=== PATIENT | male | born 1955 | race Caucasian/White ===

== ENCOUNTER 2019-02-23 09:09 | Emergency (ER) | payer MEDICARE, OTHER ==
[2019-02-23] MEDS ORDERED: Bupivacaine 0.5% 10 ML SDV INJECT ONE (09:26)
--- NOTE | 2019-02-23 10:12 | EDM.PDOC ---
ED HPI GENERAL MEDICAL PROBLEM - General Chief Complaint: Upper Extremity Injury/Pain Stated Complaint: GLASS IN FINGER Time Seen by Provider: 02/23/19 09:27 Source of Information: Reports: Patient History Limitations: Reports: No Limitations - History of Present Illness INITIAL COMMENTS - FREE TEXT/NARRATIVE: History of present illness: [] Review of systems: As per history of present illness and below otherwise all systems reviewed and negative. Past medical history: As per history of present illness and as reviewed below otherwise noncontributory. Surgical history: As per history of present illness and as reviewed below otherwise noncontributory. Social history: No reported history of drug or alcohol abuse. Family history: As per history of present illness and as reviewed below otherwise noncontributory. Physical exam: General: Well developed, well nourished in NAD HEENT: Atraumatic, normocephalic, pupils reactive, negative for conjunctival pallor or scleral icterus, mucous membranes moist, throat clear, neck supple, nontender, trachea midline. Lungs: Clear to auscultation, breath sounds equal bilaterally, chest nontender. Heart: S1S2, regular, negative for clicks, rubs, or JVD. Abdomen: NABS, Soft, nondistended, nontender. Negative for masses or hepatosplenomegaly. Negative for costovertebral tenderness. Pelvis: Stable nontender. Genitourinary: Deferred. Rectal: Deferred. Extremities: Atraumatic, no external lesions in the area of tenderness or in the finger. She does not tolerate exam There is no erythema or swelling negative for cords or calf pain. Neurovascular unremarkable. Neuro: Awake, alert, oriented. Cranial nerves II through XII unremarkable. Cerebellum unremarkable. Motor and sensory unremarkable throughout. Exam nonfocal. Skin:warm and dry Diagnostics: Chest x-ray finger shows no foreign body Therapeutics: Digital block used as patient can tolerate exam and ED Course: Stable Impression: Right middle finger pain Prescriptions: None Plan: Warm soaks, follow up with primary care as needed Definitive disposition and diagnosis as appropriate pending reevaluation and review of above. - Related Data Allergies Allergy/AdvReac Type Severity Reaction Status Date / Time No Known Allergies Allergy Verified 02/23/19 09:19 Home Meds: Home Meds . [No Known Home Meds] 02/23/19 [History] Past Medical History - Past Surgical History Male Surgical History: Reports: Other (See Below) Other Male Surgeries/Procedures: testicular surgery Social & Family History - Family History Family Medical History: Noncontributory - Tobacco Use Smoking Status *Q: Never Smoker - Recreational Drug Use Recreational Drug Use: No Review of Systems - Review of Systems Review Of Systems: ROS reveals no pertinent complaints other than HPI. ED EXAM, GENERAL - Physical Exam Exam: See Below (See history of present illness) Course - Vital Signs Last Recorded V/S: Last Vital Signs Temp 96.4 F 02/23/19 09:15 Pulse 79 02/23/19 09:15 Resp 18 02/23/19 09:15 BP 158/72 H 02/23/19 09:15 Pulse Ox 93 L 02/23/19 09:15 - Orders/Labs/Meds Orders: Active Orders 24 hr Category Date Time Status Fingers Third Digit Rt F7 [CR] Stat Exams 02/23/19 09:48 Taken Meds: Medications Discontinued Medications Generic Name Dose Route Start Last Admin Trade Name Freq PRN Reason Stop Dose Admin Bupivacaine HCl 10 ml 02/23/19 09:26 02/23/19 09:54 Sensorcaine-Mpf 0.5% INJECT 02/23/19 09:27 10 ml ONETIME ONE Administration Lidocaine HCl 5 ml 02/23/19 09:26 02/23/19 09:54 Xylocaine-Mpf 1% INJECT 02/23/19 09:27 5 ml ONETIME ONE Administration Departure - Departure Time of Disposition: 10:14 Disposition: Home, Self-Care 01 Condition: Good Clinical Impression: Pain of left middle finger - Discharge Information *PRESCRIPTION DRUG MONITORING PROGRAM REVIEWED*: No *COPY OF PRESCRIPTION DRUG MONITORING REPORT IN PATIENT SATURNINO: No Referrals: PCP,Unknown [Primary Care Provider] - Forms: ED Department Discharge Additional Instructions: The following information is given to patients seen in the emergency department who are being discharged to home. This information is to outline your options for follow-up care. We provide all patients seen in our emergency department with a follow-up referral. The need for follow-up, as well as the timing and circumstances, are variable depending upon the specifics of your emergency department visit. If you don't have a primary care physician on staff, we will provide you with a referral. We always advise you to contact your personal physician following an emergency department visit to inform them of the circumstance of the visit and for follow-up with them and/or the need for any referrals to a consulting specialist. The emergency department will also refer you to a specialist when appropriate. This referral assures that you have the opportunity for follow-up care with a specialist. All of these measure are taken in an effort to provide you with optimal care, which includes your follow-up. Under all circumstances we always encourage you to contact your private physician who remains a resource for coordinating your care. When calling for follow-up care, please make the office aware that this follow-up is from your recent emergency room visit. If for any reason you are refused follow-up, please contact the [facility] Emergency Department at and asked to speak to the emergency department charge nurse. [facility] [address] [place] [id number] - My Orders Last 24 Hours: My Active Orders 02/23/19 09:48 Fingers Third Digit Rt F7 [CR] Stat - Assessment/Plan Last 24 Hours: My Active Orders 02/23/19 09:48 Fingers Third Digit Rt F7 [CR] Stat
--- NOTE | 2019-02-23 15:45 | CR ---
INDICATION: Possible foreign body at distal volar tip TECHNIQUE: Frontal, lateral, and oblique portable radiographs of the right 3rd digit. COMPARISON: None FINDINGS AND IMPRESSION: No radiopaque foreign body at the distal aspect of the 3rd digit as clinically questioned. Punctate calcification at the volar and radial aspect of the base of the 3rd mid phalanx is likely degenerative. Normal alignment. No acute fracture. No significant soft tissue swelling. Dictated by Mae Rojas MD @ Feb 23 2019 10:21AM Signed by Dr. Mae Rojas @ Feb 23 2019 10:24AM
== END 2019-02-23 10:26 | disposition home or self-care (01) ==
LOC: MW.ED 09:09
DX: M79.644 Pain in right finger(s) (principal)
CPT/HCPCS: 64450; 73140; 99283; J2001; J3490

== ENCOUNTER 2019-05-25 15:45 | Emergency (ER) | payer OTHER, MEDICARE ==
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
== END 2019-05-25 17:02 | disposition home or self-care (01) ==
LOC: MW.ED 15:45
DX: S16.1XXA Strain of muscle, fascia and tendon at neck level, initial encounter (principal); V89.2XXA Person injured in unspecified motor-vehicle accident, traffic, initial encounter
CPT/HCPCS: 72125; 72125-26; 99283; 99284-25

== ENCOUNTER 2019-06-19 11:39 | Emergency (ER) | payer OTHER, MEDICARE ==
[2019-06-19] MEDS ORDERED: traMADol 50 MG Tab PO ONE (12:01)
[2019-06-19] MEDS ORDERED: Cyclobenzaprine 10 MG Tab PO ONE (12:01)
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
--- NOTE | 2019-06-19 13:11 | CR ---
Lumbar spine: AP, lateral and coned-down lateral view centered to the lumbosacral junction are obtained. Diffuse posterior disc space narrowing is seen. Moderate diffuse narrowing is noted within the disc at L5-S1. Very slight anterior wedging is noted of the superior endplate of L1. Vertebral body heights are otherwise maintained. Scattered endplate osteophytes are seen. Mild vascular calcification is noted within the aorta. Mild scoliosis is noted within the spine. Pedicles as well as visualized transverse and spinous processes are intact. Sacroiliac joints are within normal limits. Impression: 1. Mild degenerative change. Mild scoliosis. 2. Minimal anterior wedging of the superior endplate of L1. If patient has no acute symptoms this is most likely chronic. Diagnostic code #2 [id number]
== END 2019-06-19 13:31 | disposition home or self-care (01) ==
LOC: MW.ED 11:39
DX: M54.5 Low back pain (principal)
CPT/HCPCS: 72100; 72100-26; 99283-25

== ENCOUNTER 2021-08-27 12:12 | Inpatient (IN) | payer MEDICARE ==
[2021-08-27] MEDS ORDERED: Sodium Chloride 0.9% 2.5 ML Syringe FLUSH PRN (12:31)
[2021-08-27] MEDS ORDERED: Sodium Chloride 0.9% 10 ML Syringe FLUSH PRN (12:31)
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
--- NOTE | 2021-08-27 13:21 | CR ---
INDICATION: COVID positive, shortness of breath. TECHNIQUE: Chest 1 view. COMPARISON: Chest radiograph 03/03/2017. FINDINGS: There is a dense patchy opacity in the lateral right lung base, and milder patchy opacities in the left mid and lower lung. Findings are suspicious for pneumonia. No pleural effusion or pneumothorax. Heart size upper limits of normal. Tortuous aorta. Degenerative changes of the left acromioclavicular joint. IMPRESSION: Bilateral patchy pulmonary opacities suspicious for pneumonia. Dictated by Misty Montes MD @ 08/27/2021 1:19:17 PM (Electronically Signed)
--- NOTE | 2021-08-27 13:26 | PCM.EKG ---
#1 Interpretation EKG Date: 08/27/21 Time: 13:26 EKG Interpretation Comments: Sinus arrhythmia rate of 93 Q waves inferiorly but no acute ischemia otherwise unremarkable.
[2021-08-27 15:01] LABS: BLOOD UREA NITROGEN,BUN 23 mg/dL (7.0-18.0); CARBON DIOXIDE,CO2 27.8 mmol/L (21.0-32.0); CHLORIDE,CL 98 mmol/L (98-107); GLUCOSE RANDOM 175 mg/dL (74-106); POTASSIUM,K 4.5 mmol/L (3.5-5.1); SODIUM,NA 135 mmol/L (136-148)
[2021-08-27 17:41] LABS: CORONAVIRUS COVID-19 NAA POSITIVE (NEGATIVE); INFLUENZA A NAA NEGATIVE (NEGATIVE); INFLUENZA B NAA NEGATIVE (NEGATIVE)
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
[2021-08-27] MEDS ORDERED: Benzonatate 100 MG Cap PO PRN (17:57)
[2021-08-27] MEDS ORDERED: Azithromycin 500 MG Vial IV SCH (18:00)
[2021-08-27] MEDS ORDERED: Sodium Chloride 0.9% 500 ML IV SCH (18:00)
[2021-08-27] MEDS ORDERED: Enoxaparin 40 MG/0.4 ML Syringe SUBCUT SCH (18:00)
[2021-08-27] MEDS ORDERED: cefTRIAXone 1 GM in Premix Bag 1 BAG IV SCH (18:00)
[2021-08-27] MEDS: Enoxaparin 40 MG/0.4 ML Syringe SUBCUT SCH (22:09)
[2021-08-27] MEDS: Azithromycin 500 MG in Sodium Chloride 0.9% 250 ML IV SCH (22:09)
[2021-08-27] MEDS: cefTRIAXone 1 GM in Premix Bag 1 BAG IV SCH (23:15)
[2021-08-28 08:35] LABS: BLOOD UREA NITROGEN,BUN 16 mg/dL (7.0-18.0); CARBON DIOXIDE,CO2 27.1 mmol/L (21.0-32.0); CHLORIDE,CL 102 mmol/L (98-107); GLUCOSE RANDOM 115 mg/dL (74-106); POTASSIUM,K 4.4 mmol/L (3.5-5.1); SODIUM,NA 136 mmol/L (136-148)
--- NOTE | 2021-08-28 13:18 | PCM.PN ---
- General Info Date of Service: 08/28/21 - Review of Systems Systems Review Comment:: reports fatigue and shortness of breath - Patient Data Vitals - Most Recent: Last Vital Signs Temp 35.9 C L 08/28/21 07:37 Pulse 90 08/28/21 07:37 Resp 18 08/28/21 07:37 BP 130/79 08/28/21 07:37 Pulse Ox 96 08/28/21 07:37 Weight - Most Recent: 106.322 kg I&O - Last 24 Hours: Intake & Output 08/27/21 08/28/21 08/28/21 22:59 06:59 14:59 Intake Total 1000 Output Total 300 Balance 700 Lab Results Last 24 Hours: Laboratory Results - last 24 hr 08/27/21 08/27/21 08/27/21 Range/Units 14:03 14:03 17:00 WBC 8.52 (4.0-11.0) K/uL RBC 4.65 (4.50-5.90) M/uL Hgb 15.9 (13.0-17.0) g/dL Hct 45.2 (38.0-50.0) % MCV 97.2 (80.0-98.0) fL MCH 34.2 H (27.0-32.0) pg MCHC 35.2 (31.0-37.0) g/dL RDW Std Deviation 48.0 (28.0-62.0) fl RDW Coeff of Bennie 14 (11.0-15.0) % Plt Count 127 L (150-400) K/uL MPV 11.10 (7.40-12.00) fL Neut % (Auto) 81.2 H (48.0-80.0) % Lymph % (Auto) 7.4 L (16.0-40.0) % Toole % (Auto) 11.3 (0.0-15.0) % Eos % (Auto) 0.0 (0.0-7.0) % Baso % (Auto) 0.1 (0.0-1.5) % Neut # (Auto) 6.9 H (1.4-5.7) K/uL Lymph # (Auto) 0.6 (0.6-2.4) K/uL Toole # (Auto) 1.0 H (0.0-0.8) K/uL Eos # (Auto) 0.0 (0.0-0.7) K/uL Baso # (Auto) 0.0 (0.0-0.1) K/uL Nucleated RBC % 0.0 /100WBC Nucleated RBCs # 0 K/uL Sodium 135 L (136-148) mmol/L Potassium 4.5 (3.5-5.1) mmol/L Chloride 98 (98-107) mmol/L Carbon Dioxide 27.8 (21.0-32.0) mmol/L BUN 23 H (7.0-18.0) mg/dL Creatinine 1.0 (0.8-1.3) mg/dL Est Cr Clr Drug Dosing 77.60 mL/min Estimated GFR (MDRD) > 60.0 ml/min Glucose 175 H (74-106) mg/dL Calcium 8.7 (8.5-10.1) mg/dL Magnesium 2.2 (1.8-2.4) mg/dL Total Bilirubin 0.7 (0.2-1.0) mg/dL AST 52 H (15-37) IU/L ALT 71 H (14-63) IU/L Alkaline Phosphatase 46 (46-116) U/L Troponin I < 0.050 (0.000-0.056) ng/mL C-Reactive Protein (0.00-0.90) mg/dL Total Protein 6.6 (6.4-8.2) g/dL Albumin 2.7 L (3.4-5.0) g/dL Globulin 3.9 (2.6-4.0) g/dL Albumin/Globulin Ratio 0.7 L (0.9-1.6) Influenza Type A RNA NEGATIVE (NEGATIVE) Influenza Type B RNA NEGATIVE (NEGATIVE) SARS-CoV-2 RNA (PILAR) POSITIVE H (NEGATIVE) 08/27/21 08/28/21 08/28/21 Range/Units 18:06 06:56 06:56 WBC 5.73 (4.0-11.0) K/uL RBC 4.25 L (4.50-5.90) M/uL Hgb 14.3 (13.0-17.0) g/dL Hct 41.6 (38.0-50.0) % MCV 97.9 (80.0-98.0) fL MCH 33.6 H (27.0-32.0) pg MCHC 34.4 (31.0-37.0) g/dL RDW Std Deviation 48.4 (28.0-62.0) fl RDW Coeff of Bennie 13 (11.0-15.0) % Plt Count 133 L (150-400) K/uL MPV 11.70 (7.40-12.00) fL Neut % (Auto) 67.8 (48.0-80.0) % Lymph % (Auto) 18.0 (16.0-40.0) % Toole % (Auto) 13.8 (0.0-15.0) % Eos % (Auto) 0.2 (0.0-7.0) % Baso % (Auto) 0.2 (0.0-1.5) % Neut # (Auto) 3.9 (1.4-5.7) K/uL Lymph # (Auto) 1.0 (0.6-2.4) K/uL Toole # (Auto) 0.8 (0.0-0.8) K/uL Eos # (Auto) 0.0 (0.0-0.7) K/uL Baso # (Auto) 0.0 (0.0-0.1) K/uL Nucleated RBC % 0.0 /100WBC Nucleated RBCs # 0 K/uL Sodium 136 (136-148) mmol/L Potassium 4.4 (3.5-5.1) mmol/L Chloride 102 (98-107) mmol/L Carbon Dioxide 27.1 (21.0-32.0) mmol/L BUN 16 (7.0-18.0) mg/dL Creatinine 0.9 (0.8-1.3) mg/dL Est Cr Clr Drug Dosing 86.22 mL/min Estimated GFR (MDRD) > 60.0 ml/min Glucose 115 H (74-106) mg/dL Calcium 7.9 L (8.5-10.1) mg/dL Magnesium (1.8-2.4) mg/dL Total Bilirubin 0.6 (0.2-1.0) mg/dL AST 83 H (15-37) IU/L ALT 91 H (14-63) IU/L Alkaline Phosphatase 41 L (46-116) U/L Troponin I (0.000-0.056) ng/mL C-Reactive Protein 12.80 H (0.00-0.90) mg/dL Total Protein 5.6 L (6.4-8.2) g/dL Albumin 2.3 L (3.4-5.0) g/dL Globulin 3.3 (2.6-4.0) g/dL Albumin/Globulin Ratio 0.7 L (0.9-1.6) Influenza Type A RNA (NEGATIVE) Influenza Type B RNA (NEGATIVE) SARS-CoV-2 RNA (PILAR) (NEGATIVE) Med Orders - Current: Current Medications Benzonatate (Benzonatate 100 Mg Cap) 100 mg PO Q6H PRN PRN Reason: Cough Last Admin: 08/28/21 02:53 Dose: 100 mg Documented by: Enoxaparin Sodium (Enoxaparin 40 Mg/0.4 Ml Syringe) 40 mg SUBCUT Q24H [facility] Last Admin: 08/27/21 22:09 Dose: 40 mg Documented by: Sodium Chloride (Normal Saline) 500 mls @ 125 mls/hr IV .BOLUS [facility] Ceftriaxone Sodium/Dextrose 1 (gm/ Premix) 50 mls @ 100 mls/hr IV Q24H [facility] Last Admin: 08/27/21 23:15 Dose: 100 mls/hr Documented by: Azithromycin 500 mg/ Sodium (Chloride) 250 mls @ 250 mls/hr IV Q24H [facility] Last Admin: 08/27/21 22:09 Dose: 250 mls/hr Documented by: Sodium Chloride (Sodium Chloride 0.9% 10 Ml Syringe) 10 ml FLUSH ASDIRECTED PRN PRN Reason: Keep Vein Open Last Admin: 08/27/21 15:00 Dose: 10 ml Documented by: Sodium Chloride (Sodium Chloride 0.9% 2.5 Ml Syringe) 2.5 ml FLUSH ASDIRECTED PRN PRN Reason: Keep Vein Open Last Admin: 08/27/21 15:00 Dose: 2.5 ml Documented by: Discontinued Medications Azithromycin (Azithromycin 500 Mg Vial) 500 mg IV Q24H [facility] Last Admin: 08/28/21 07:52 Dose: Not Given Documented by: Enoxaparin Sodium (Enoxaparin 40 Mg/0.4 Ml Syringe) 40 mg SUBCUT Q24H [facility] Last Admin: 08/28/21 07:52 Dose: Not Given Documented by: Ceftriaxone Sodium/Dextrose 1 (gm/ Premix) 50 mls @ 100 mls/hr IV Q24H [facility] Last Admin: 08/28/21 07:52 Dose: Not Given Documented by: - Exam General: Alert, Oriented Neck: Supple Lungs: Clear to Auscultation, Normal Respiratory Effort Cardiovascular: Regular Rate, Regular Rhythm GI/Abdominal Exam: Soft, Non-Tender, No Distention Extremities: Non-Tender, No Pedal Edema Skin: Warm, Dry, Intact Neurological: No New Focal Deficit - Patient Data Lab Results Last 24 hrs: Laboratory Results - last 24 hr 08/27/21 08/27/21 08/27/21 Range/Units 14:03 14:03 17:00 WBC 8.52 (4.0-11.0) K/uL RBC 4.65 (4.50-5.90) M/uL Hgb 15.9 (13.0-17.0) g/dL Hct 45.2 (38.0-50.0) % MCV 97.2 (80.0-98.0) fL MCH 34.2 H (27.0-32.0) pg MCHC 35.2 (31.0-37.0) g/dL RDW Std Deviation 48.0 (28.0-62.0) fl RDW Coeff of Bennie 14 (11.0-15.0) % Plt Count 127 L (150-400) K/uL MPV 11.10 (7.40-12.00) fL Neut % (Auto) 81.2 H (48.0-80.0) % Lymph % (Auto) 7.4 L (16.0-40.0) % Toole % (Auto) 11.3 (0.0-15.0) % Eos % (Auto) 0.0 (0.0-7.0) % Baso % (Auto) 0.1 (0.0-1.5) % Neut # (Auto) 6.9 H (1.4-5.7) K/uL Lymph # (Auto) 0.6 (0.6-2.4) K/uL Toole # (Auto) 1.0 H (0.0-0.8) K/uL Eos # (Auto) 0.0 (0.0-0.7) K/uL Baso # (Auto) 0.0 (0.0-0.1) K/uL Nucleated RBC % 0.0 /100WBC Nucleated RBCs # 0 K/uL Sodium 135 L (136-148) mmol/L Potassium 4.5 (3.5-5.1) mmol/L Chloride 98 (98-107) mmol/L Carbon Dioxide 27.8 (21.0-32.0) mmol/L BUN 23 H (7.0-18.0) mg/dL Creatinine 1.0 (0.8-1.3) mg/dL Est Cr Clr Drug Dosing 77.60 mL/min Estimated GFR (MDRD) > 60.0 ml/min Glucose 175 H (74-106) mg/dL Calcium 8.7 (8.5-10.1) mg/dL Magnesium 2.2 (1.8-2.4) mg/dL Total Bilirubin 0.7 (0.2-1.0) mg/dL AST 52 H (15-37) IU/L ALT 71 H (14-63) IU/L Alkaline Phosphatase 46 (46-116) U/L Troponin I < 0.050 (0.000-0.056) ng/mL C-Reactive Protein (0.00-0.90) mg/dL Total Protein 6.6 (6.4-8.2) g/dL Albumin 2.7 L (3.4-5.0) g/dL Globulin 3.9 (2.6-4.0) g/dL Albumin/Globulin Ratio 0.7 L (0.9-1.6) Influenza Type A RNA NEGATIVE (NEGATIVE) Influenza Type B RNA NEGATIVE (NEGATIVE) SARS-CoV-2 RNA (PILAR) POSITIVE H (NEGATIVE) 08/27/21 08/28/21 08/28/21 Range/Units 18:06 06:56 06:56 WBC 5.73 (4.0-11.0) K/uL RBC 4.25 L (4.50-5.90) M/uL Hgb 14.3 (13.0-17.0) g/dL Hct 41.6 (38.0-50.0) % MCV 97.9 (80.0-98.0) fL MCH 33.6 H (27.0-32.0) pg MCHC 34.4 (31.0-37.0) g/dL RDW Std Deviation 48.4 (28.0-62.0) fl RDW Coeff of Bennie 13 (11.0-15.0) % Plt Count 133 L (150-400) K/uL MPV 11.70 (7.40-12.00) fL Neut % (Auto) 67.8 (48.0-80.0) % Lymph % (Auto) 18.0 (16.0-40.0) % Toole % (Auto) 13.8 (0.0-15.0) % Eos % (Auto) 0.2 (0.0-7.0) % Baso % (Auto) 0.2 (0.0-1.5) % Neut # (Auto) 3.9 (1.4-5.7) K/uL Lymph # (Auto) 1.0 (0.6-2.4) K/uL Toole # (Auto) 0.8 (0.0-0.8) K/uL Eos # (Auto) 0.0 (0.0-0.7) K/uL Baso # (Auto) 0.0 (0.0-0.1) K/uL Nucleated RBC % 0.0 /100WBC Nucleated RBCs # 0 K/uL Sodium 136 (136-148) mmol/L Potassium 4.4 (3.5-5.1) mmol/L Chloride 102 (98-107) mmol/L Carbon Dioxide 27.1 (21.0-32.0) mmol/L BUN 16 (7.0-18.0) mg/dL Creatinine 0.9 (0.8-1.3) mg/dL Est Cr Clr Drug Dosing 86.22 mL/min Estimated GFR (MDRD) > 60.0 ml/min Glucose 115 H (74-106) mg/dL Calcium 7.9 L (8.5-10.1) mg/dL Magnesium (1.8-2.4) mg/dL Total Bilirubin 0.6 (0.2-1.0) mg/dL AST 83 H (15-37) IU/L ALT 91 H (14-63) IU/L Alkaline Phosphatase 41 L (46-116) U/L Troponin I (0.000-0.056) ng/mL C-Reactive Protein 12.80 H (0.00-0.90) mg/dL Total Protein 5.6 L (6.4-8.2) g/dL Albumin 2.3 L (3.4-5.0) g/dL Globulin 3.3 (2.6-4.0) g/dL Albumin/Globulin Ratio 0.7 L (0.9-1.6) Influenza Type A RNA (NEGATIVE) Influenza Type B RNA (NEGATIVE) SARS-CoV-2 RNA (PILAR) (NEGATIVE) Result Diagrams: 08/28/21 06:56 08/28/21 06:56 Sepsis Event Note - Evaluation Sepsis Screening Result: No Definite Risk - Focused Exam Vital Signs: Vital Signs Temp Pulse Resp BP Pulse Ox 08/28/21 07:37 35.9 C L 90 18 130/79 96 08/28/21 04:00 36.4 C 87 20 143/82 H - Problem List & Annotations (1) COVID SNOMED Code(s): 306130030 Code(s): U07.1 - COVID-19 Status: Acute Current Visit: Yes (2) Dehydration SNOMED Code(s): 70137491 Code(s): E86.0 - DEHYDRATION Status: Acute Current Visit: Yes (3) Pneumonia SNOMED Code(s): 265916458 Code(s): J18.9 - PNEUMONIA, UNSPECIFIED ORGANISM Status: Acute Current Visit: Yes - Problem List Review Problem List Initiated/Reviewed/Updated: Yes - My Orders Last 24 Hours: My Active Orders 08/27/21 17:55 Oxygen Therapy [RC] PRN VTE/DVT Education [RC] DAILY PT Evaluation and Treatment [CONS] Routine Sequential Compression Device [OM.PC] Per Unit Routine Resuscitation Status Routine 08/27/21 17:56 Antiembolic Devices [RC] PER UNIT ROUTINE 08/27/21 17:57 Benzonatate [Tessalon Perles] 100 mg PO Q6H PRN 08/27/21 18:00 Sodium Chloride 0.9% [Normal Saline] 500 ml IV .BOLUS 08/27/21 18:06 PROCALCITONIN [REF] Routine 08/27/21 21:30 cefTRIAXone [Rocephin in Dextrose,Iso-Osm 1 GM/50 ML] 1 gm Premix Bag 1 bag IV Q24H 08/27/21 22:00 Azithromycin [Zithromax] 500 mg Sodium Chloride 0.9% [Normal Saline AdvBag] 250 ml IV Q24H Enoxaparin [Lovenox] 40 mg SUBCUT Q24H 08/28/21 13:15 Remdesivir 100 mg Sodium Chloride 0.9% [Normal Saline AdvBag] 100 ml IV Q24H dexAMETHasone 6 mg PO Q24H 08/29/21 13:14 Remdesivir 200 mg Sodium Chloride 0.9% [Normal Saline] 250 ml IV ONETIME - Plan Plan:: 66 yo male admitted for COVID myopathy and encephalopathy. PAtient is hypoxic this morning requring 3 L NC Hypoxia: continue 3 L NC COVID: treating with dexamethasone, and remdesivir on ceftriaxone and azithromcyin lovenox for DVT prophylaxis. PT consulted
[2021-08-28] MEDS: Dexamethasone 4 MG Tab PO SCH (14:17)
[2021-08-28] MEDS: cefTRIAXone 1 GM in Premix Bag 1 BAG IV SCH (20:45)
[2021-08-28] MEDS: Azithromycin 500 MG in Sodium Chloride 0.9% 250 ML IV SCH (21:01)
[2021-08-28] MEDS: Enoxaparin 40 MG/0.4 ML Syringe SUBCUT SCH (21:01)
[2021-08-29] MEDS ORDERED: REMDESIVIR 200 MG in Sodium Chloride 0.9% 250 ML IV ONE (09:00)
[2021-08-29] MEDS: Dexamethasone 4 MG Tab PO SCH (13:04)
--- NOTE | 2021-08-29 14:06 | PCM.PN ---
- General Info Date of Service: 08/29/21 - Review of Systems Systems Review Comment:: feeling better, shortness of breath improving, has unproductive cough - Patient Data Vitals - Most Recent: Last Vital Signs Temp 36.1 C 08/29/21 12:20 Pulse 67 08/29/21 12:20 Resp 16 08/29/21 12:20 BP 124/64 08/29/21 12:20 Pulse Ox 90 L 08/29/21 12:20 Weight - Most Recent: 106.322 kg I&O - Last 24 Hours: Intake & Output 08/28/21 08/29/21 08/29/21 22:59 06:59 14:59 Intake Total 1200 1500 250 Output Total 950 1000 Balance 250 500 250 Lab Results Last 24 Hours: Laboratory Results - last 24 hr 08/27/21 Range/Units 18:06 Procalcitonin 1.35 H ng/mL Med Orders - Current: Current Medications Benzonatate (Benzonatate 100 Mg Cap) 100 mg PO Q6H PRN PRN Reason: Cough Last Admin: 08/28/21 02:53 Dose: 100 mg Documented by: Dexamethasone (Dexamethasone 4 Mg Tab) 6 mg PO Q24H [facility] Last Admin: 08/29/21 13:04 Dose: 6 mg Documented by: Enoxaparin Sodium (Enoxaparin 40 Mg/0.4 Ml Syringe) 40 mg SUBCUT Q24H [facility] Last Admin: 08/28/21 21:01 Dose: 40 mg Documented by: Sodium Chloride (Normal Saline) 500 mls @ 125 mls/hr IV .BOLUS [facility] Ceftriaxone Sodium/Dextrose 1 (gm/ Premix) 50 mls @ 100 mls/hr IV Q24H [facility] Last Admin: 08/28/21 20:45 Dose: 100 mls/hr Documented by: Azithromycin 500 mg/ Sodium (Chloride) 250 mls @ 250 mls/hr IV Q24H [facility] Last Admin: 08/28/21 21:01 Dose: 250 mls/hr Documented by: Remdesivir 100 mg/ Sodium (Chloride) 100 mls @ 100 mls/hr IV Q24H [facility] Stop: 09/02/21 09:59 Sodium Chloride (Sodium Chloride 0.9% 10 Ml Syringe) 10 ml FLUSH ASDIRECTED PRN PRN Reason: Keep Vein Open Last Admin: 08/27/21 15:00 Dose: 10 ml Documented by: Sodium Chloride (Sodium Chloride 0.9% 2.5 Ml Syringe) 2.5 ml FLUSH ASDIRECTED PRN PRN Reason: Keep Vein Open Last Admin: 08/27/21 15:00 Dose: 2.5 ml Documented by: Discontinued Medications Azithromycin (Azithromycin 500 Mg Vial) 500 mg IV Q24H [facility] Last Admin: 08/28/21 07:52 Dose: Not Given Documented by: Enoxaparin Sodium (Enoxaparin 40 Mg/0.4 Ml Syringe) 40 mg SUBCUT Q24H [facility] Last Admin: 08/28/21 07:52 Dose: Not Given Documented by: Ceftriaxone Sodium/Dextrose 1 (gm/ Premix) 50 mls @ 100 mls/hr IV Q24H [facility] Last Admin: 08/28/21 07:52 Dose: Not Given Documented by: Remdesivir 200 mg/ Sodium (Chloride) 250 mls @ 250 mls/hr IV ONETIME ONE Stop: 08/29/21 09:59 Last Admin: 08/29/21 09:53 Dose: 250 mls/hr Documented by: - Exam General: Alert, Oriented Lungs: Normal Respiratory Effort, Rhonchi Cardiovascular: Regular Rate, Regular Rhythm GI/Abdominal Exam: Soft, Non-Tender, No Distention Extremities: Non-Tender, No Pedal Edema Skin: Warm, Dry, Intact Neurological: No New Focal Deficit - Patient Data Lab Results Last 24 hrs: Laboratory Results - last 24 hr 08/27/21 Range/Units 18:06 Procalcitonin 1.35 H ng/mL Result Diagrams: 08/28/21 06:56 08/28/21 06:56 Sepsis Event Note - Evaluation Sepsis Screening Result: No Definite Risk - Focused Exam Vital Signs: Vital Signs Temp Pulse Resp BP Pulse Ox 08/29/21 12:20 36.1 C 67 16 124/64 90 L 08/29/21 09:00 35.8 C L 81 16 121/63 86 L 08/29/21 05:54 96 08/29/21 04:00 36.6 C 67 18 130/68 97 - Problem List & Annotations (1) COVID SNOMED Code(s): 437578731 Code(s): U07.1 - COVID-19 Status: Acute Current Visit: Yes (2) Dehydration SNOMED Code(s): 03005897 Code(s): E86.0 - DEHYDRATION Status: Acute Current Visit: Yes (3) Pneumonia SNOMED Code(s): 237775953 Code(s): J18.9 - PNEUMONIA, UNSPECIFIED ORGANISM Status: Acute Current Visit: Yes - Problem List Review Problem List Initiated/Reviewed/Updated: Yes - My Orders Last 24 Hours: My Active Orders 08/28/21 13:15 dexAMETHasone 6 mg PO Q24H 08/29/21 14:03 COMPREHENSIVE METABOLIC PN,CMP [CHEM] Routine 08/29/21 14:04 CBC WITH AUTO DIFF [HEME] Routine 08/30/21 05:11 CBC WITH AUTO DIFF [HEME] AM COMPREHENSIVE METABOLIC PN,CMP [CHEM] AM 08/30/21 09:00 Remdesivir 100 mg Sodium Chloride 0.9% [Normal Saline AdvBag] 100 ml IV Q24H - Plan Plan:: 66 yo male admitted for COVID myopathy and encephalopathy. hypoxia: 2 L NC COVID-19: dexamethasone, remdesivir, also on Rocephin and azithromycin. Lovenox for DVT prophylaxis
[2021-08-29 16:13] LABS: BLOOD UREA NITROGEN,BUN 16 mg/dL (7.0-18.0); CARBON DIOXIDE,CO2 22.1 mmol/L (21.0-32.0); CHLORIDE,CL 101 mmol/L (98-107); GLUCOSE RANDOM 190 mg/dL (74-106); POTASSIUM,K 4.9 mmol/L (3.5-5.1); SODIUM,NA 136 mmol/L (136-148)
[2021-08-29] MEDS: cefTRIAXone 1 GM in Premix Bag 1 BAG IV SCH (20:34)
[2021-08-29] MEDS: Enoxaparin 40 MG/0.4 ML Syringe SUBCUT SCH (21:54)
[2021-08-29] MEDS: Azithromycin 500 MG in Sodium Chloride 0.9% 250 ML IV SCH (21:55)
[2021-08-30] MEDS ORDERED: REMDESIVIR 100 MG in Sodium Chloride 0.9% 100 ML IV SCH (09:00)
[2021-08-30 12:10] LABS: BLOOD UREA NITROGEN,BUN 18 mg/dL (7.0-18.0); CARBON DIOXIDE,CO2 25.2 mmol/L (21.0-32.0); CHLORIDE,CL 99 mmol/L (98-107); GLUCOSE RANDOM 220 mg/dL (74-106); POTASSIUM,K 3.8 mmol/L (3.5-5.1); SODIUM,NA 133 mmol/L (136-148)
[2021-08-30] MEDS: Dexamethasone 4 MG Tab PO SCH (13:59)
--- NOTE | 2021-08-30 14:54 | PCM.DCSUM1 ---
Discharge Summary - Hospital Course Free Text/Narrative:: 66 y/o obese male admitted with SOB and hypoxemia due to COVID 19 infection. He was treated with Dexamethasone and Remdesivir, Rocephin and zithromax. He made a quick turn around and was able to maintain his sats > 90% on room air. He was noted to desaturate to the mid 80%'s with activity. He was discharged home on home oxygen. Hid D-dimer was only 0.4. Pt was discharged home to complete a 10 day course of dexamethasone Discharge time was 35 minutes Physical exam: General: Tall obese male. In no acute distress. CVS: S1S2 appreciated. RRR lungs: Diminished but clear bilaterally pa: soft, obese, non tender. bowel sounds present ext: no clubbing, cyanosis or edema neuro: non focal. Steady gait. Diagnosis: Stroke: No - Discharge Data Discharge Date: 08/30/21 Discharge Disposition: Home, Self-Care 01 Condition: Fair - Referral to Home Health Primary Care Physician: PCP None - Patient Summary/Data Consults: Consultations 08/27/21 17:55 PT Evaluation and Treatment [CONS] Routine - Discharge Plan *PRESCRIPTION DRUG MONITORING PROGRAM REVIEWED*: No *COPY OF PRESCRIPTION DRUG MONITORING REPORT IN PATIENT [place]: No Prescriptions/Med Rec: dexAMETHasone [Dexamethasone] 6 mg PO Q24H 9 Days tablet Home Medications: Home Meds dexAMETHasone [Dexamethasone] 6 mg PO Q24H 9 Days tablet 08/30/21 [Rx] Forms: ED Department Discharge Referrals: PCP,None [Primary Care Provider] - - Discharge Summary/Plan Comment DC Time >30 min.: Yes Total # of Minutes for Discharge Time: 35 mins - Patient Data Vitals - Most Recent: Last Vital Signs Temp 96.4 F L 08/30/21 11:00 Pulse 65 08/30/21 11:00 Resp 16 08/30/21 11:00 BP 159/75 H 08/30/21 11:00 Pulse Ox 96 08/30/21 11:00 Weight - Most Recent: 234 lb 6.4 oz I&O - Last 24 hours: Intake & Output 08/29/21 08/30/21 08/30/21 22:59 06:59 14:59 Intake Total 1000 1400 Output Total 1200 Balance 1000 200 Lab Results - Last 24 hrs: Laboratory Results - last 24 hr 08/29/21 08/29/21 08/30/21 Range/Units 15:00 15:33 11:20 WBC 6.20 9.08 (4.0-11.0) K/uL RBC 4.83 4.70 (4.50-5.90) M/uL Hgb 16.5 16.0 (13.0-17.0) g/dL Hct 45.7 44.7 (38.0-50.0) % MCV 94.6 95.1 (80.0-98.0) fL MCH 34.2 H 34.0 H (27.0-32.0) pg MCHC 36.1 35.8 (31.0-37.0) g/dL RDW Std Deviation 45.1 45.0 (28.0-62.0) fl RDW Coeff of Bennie 13 13 (11.0-15.0) % Plt Count 167 253 (150-400) K/uL MPV 11.80 11.30 (7.40-12.00) fL Neut % (Auto) 76.2 78.4 (48.0-80.0) % Lymph % (Auto) 10.3 L 12.7 L (16.0-40.0) % [place] % (Auto) 13.1 8.9 (0.0-15.0) % Eos % (Auto) 0.2 0.0 (0.0-7.0) % Baso % (Auto) 0.2 0.0 (0.0-1.5) % Neut # (Auto) 4.7 7.1 H (1.4-5.7) K/uL Lymph # (Auto) 0.6 1.2 (0.6-2.4) K/uL [place] # (Auto) 0.8 0.8 (0.0-0.8) K/uL Eos # (Auto) 0.0 0.0 (0.0-0.7) K/uL Baso # (Auto) 0.0 0.0 (0.0-0.1) K/uL Nucleated RBC % 0.0 0.0 /100WBC Nucleated RBCs # 0 0 K/uL D-Dimer, Quantitative (0.0-0.50) mg/L FEU Sodium 136 (136-148) mmol/L Potassium 4.9 (3.5-5.1) mmol/L Chloride 101 (98-107) mmol/L Carbon Dioxide 22.1 (21.0-32.0) mmol/L BUN 16 (7.0-18.0) mg/dL Creatinine 0.7 L (0.8-1.3) mg/dL Est Cr Clr Drug Dosing 110.86 mL/min Estimated GFR (MDRD) > 60.0 ml/min Glucose 190 H (74-106) mg/dL Calcium 8.7 (8.5-10.1) mg/dL Total Bilirubin 0.7 (0.2-1.0) mg/dL AST 65 H (15-37) IU/L ALT 100 H (14-63) IU/L Alkaline Phosphatase 50 (46-116) U/L Total Protein 6.5 (6.4-8.2) g/dL Albumin 2.6 L (3.4-5.0) g/dL Globulin 3.9 (2.6-4.0) g/dL Albumin/Globulin Ratio 0.7 L (0.9-1.6) 08/30/21 08/30/21 Range/Units 11:20 11:20 WBC (4.0-11.0) K/uL RBC (4.50-5.90) M/uL Hgb (13.0-17.0) g/dL Hct (38.0-50.0) % MCV (80.0-98.0) fL MCH (27.0-32.0) pg MCHC (31.0-37.0) g/dL RDW Std Deviation (28.0-62.0) fl RDW Coeff of Bennie (11.0-15.0) % Plt Count (150-400) K/uL MPV (7.40-12.00) fL Neut % (Auto) (48.0-80.0) % Lymph % (Auto) (16.0-40.0) % [place] % (Auto) (0.0-15.0) % Eos % (Auto) (0.0-7.0) % Baso % (Auto) (0.0-1.5) % Neut # (Auto) (1.4-5.7) K/uL Lymph # (Auto) (0.6-2.4) K/uL [place] # (Auto) (0.0-0.8) K/uL Eos # (Auto) (0.0-0.7) K/uL Baso # (Auto) (0.0-0.1) K/uL Nucleated RBC % /100WBC Nucleated RBCs # K/uL D-Dimer, Quantitative 0.47 (0.0-0.50) mg/L FEU Sodium 133 L (136-148) mmol/L Potassium 3.8 (3.5-5.1) mmol/L Chloride 99 (98-107) mmol/L Carbon Dioxide 25.2 (21.0-32.0) mmol/L BUN 18 (7.0-18.0) mg/dL Creatinine 1.0 (0.8-1.3) mg/dL Est Cr Clr Drug Dosing 77.60 mL/min Estimated GFR (MDRD) > 60.0 ml/min Glucose 220 H (74-106) mg/dL Calcium 8.5 (8.5-10.1) mg/dL Total Bilirubin 0.7 (0.2-1.0) mg/dL AST 64 H (15-37) IU/L ALT 109 H (14-63) IU/L Alkaline Phosphatase 47 (46-116) U/L Total Protein 7.2 (6.4-8.2) g/dL Albumin 2.6 L (3.4-5.0) g/dL Globulin 4.6 H (2.6-4.0) g/dL Albumin/Globulin Ratio 0.6 L (0.9-1.6) Med Orders - Current: Current Medications Benzonatate (Benzonatate 100 Mg Cap) 100 mg PO Q6H PRN PRN Reason: Cough Last Admin: 08/28/21 02:53 Dose: 100 mg Documented by: Dexamethasone (Dexamethasone 4 Mg Tab) 6 mg PO Q24H [facility] Last Admin: 08/30/21 13:59 Dose: 6 mg Documented by: Enoxaparin Sodium (Enoxaparin 40 Mg/0.4 Ml Syringe) 40 mg SUBCUT Q24H [facility] Last Admin: 08/29/21 21:54 Dose: 40 mg Documented by: Sodium Chloride (Normal Saline) 500 mls @ 125 mls/hr IV .BOLUS [facility] Ceftriaxone Sodium/Dextrose 1 (gm/ Premix) 50 mls @ 100 mls/hr IV Q24H [facility] Last Admin: 08/29/21 20:34 Dose: 100 mls/hr Documented by: Azithromycin 500 mg/ Sodium (Chloride) 250 mls @ 250 mls/hr IV Q24H [facility] Last Admin: 08/29/21 21:55 Dose: 250 mls/hr Documented by: Remdesivir 100 mg/ Sodium (Chloride) 100 mls @ 100 mls/hr IV Q24H [facility] Stop: 09/02/21 09:59 Last Admin: 08/30/21 09:33 Dose: 100 mls/hr Documented by: Sodium Chloride (Sodium Chloride 0.9% 10 Ml Syringe) 10 ml FLUSH ASDIRECTED PRN PRN Reason: Keep Vein Open Last Admin: 08/27/21 15:00 Dose: 10 ml Documented by: Sodium Chloride (Sodium Chloride 0.9% 2.5 Ml Syringe) 2.5 ml FLUSH ASDIRECTED PRN PRN Reason: Keep Vein Open Last Admin: 08/27/21 15:00 Dose: 2.5 ml Documented by: Discontinued Medications Azithromycin (Azithromycin 500 Mg Vial) 500 mg IV Q24H [facility] Last Admin: 08/28/21 07:52 Dose: Not Given Documented by: Enoxaparin Sodium (Enoxaparin 40 Mg/0.4 Ml Syringe) 40 mg SUBCUT Q24H [facility] Last Admin: 08/28/21 07:52 Dose: Not Given Documented by: Ceftriaxone Sodium/Dextrose 1 (gm/ Premix) 50 mls @ 100 mls/hr IV Q24H [facility] Last Admin: 08/28/21 07:52 Dose: Not Given Documented by: Remdesivir 200 mg/ Sodium (Chloride) 250 mls @ 250 mls/hr IV ONETIME ONE Stop: 08/29/21 09:59 Last Admin: 08/29/21 09:53 Dose: 250 mls/hr Documented by:
== END 2021-08-30 16:55 | disposition home or self-care (01) | DRG 177 ==
LOC: MW.ED 12:12 → MW.MS 17:27
PROVIDERS: ADMIT Internal Medicine; ATTEND Internal Medicine
PROC: XW033E5 Introduction of Remdesivir Anti-infective into Peripheral Vein, Percutaneous Approach, New Technology Group 5 (ICD-10-PCS; principal; 2021-08-29)
PROC: 3E0DX3Z Introduction of Anti-inflammatory into Mouth and Pharynx, External Approach (ICD-10-PCS; 2021-08-29)
DX: U07.1 COVID-19 (principal); J18.9 Pneumonia, unspecified organism; Z97.3 Presence of spectacles and contact lenses; G93.49 Other encephalopathy; E87.1 Hypo-osmolality and hyponatremia; E66.9 Obesity, unspecified; H54.7 Unspecified visual loss; G89.29 Other chronic pain; M54.9 Dorsalgia, unspecified; E86.0 Dehydration; G72.9 Myopathy, unspecified; Z68.31 Body mass index [BMI] 31.0-31.9, adult
CPT/HCPCS: 0240U; 36415; 71045; 80053; 83735; 84145; 84484; 85025; 85379; 86140; 93005; 97161; 97530; 99285; A9270-GY; J0456; J0696; J1650; J7050; J8540

== ENCOUNTER 2023-12-02 21:36 | Emergency (ER) | payer MEDICARE ==
[2023-12-02] MEDS ORDERED: Sodium Chloride 0.9% 10 ML Syringe FLUSH PRN (21:37)
[2023-12-02] MEDS ORDERED: Sodium Chloride 0.9% 2.5 ML Syringe FLUSH PRN (21:37)
[2023-12-02 22:42] LABS: BILIRUBIN,URINE NEGATIVE (NEGATIVE); COLOR,URINE YELLOW; GLUCOSE,URINE 500 mg/dL (NEGATIVE); KETONES,URINE NEGATIVE (NEGATIVE); LEUKOCYTE ESTERASE,URINE NEGATIVE (NEGATIVE); NITRITE,URINE POSITIVE (NEGATIVE); OCCULT BLOOD,URINE MODERATE (NEGATIVE); PROTEIN,URINE NEGATIVE (NEGATIVE); UROBILINOGEN,URINE 0.2 EU/dL (<2.0)
[2023-12-02 22:49] LABS: APPEARANCE,URINE HAZY
[2023-12-02 23:08] LABS: BACTERIA,URINE 1+ (NEGATIVE); EPITHELIAL CELLS,URINE FEW (NONE-FEW); RBC,URINE 0-3 (0-2/HPF); WBC,URINE 0-2 (0-5/HPF)
== END 2023-12-02 23:52 | disposition home or self-care (01) ==
LOC: MW.ED 21:36
DX: R33.9 Retention of urine, unspecified (principal); E66.9 Obesity, unspecified; I10 Essential (primary) hypertension; Z79.899 Other long term (current) drug therapy; Z75.8 Other problems related to medical facilities and other health care
CPT/HCPCS: 51702; 81001; 99283

== ENCOUNTER 2023-12-04 10:55 | Emergency (ER) | payer MEDICARE ==
[2023-12-04 13:44] LABS: APPEARANCE,URINE SLT CLOUDY; COLOR,URINE OTHER; GLUCOSE,URINE 100 mg/dL (NEGATIVE); KETONES,URINE TRACE mg/dL (NEGATIVE); LEUKOCYTE ESTERASE,URINE NEGATIVE (NEGATIVE); NITRITE,URINE POSITIVE (NEGATIVE); OCCULT BLOOD,URINE LARGE (NEGATIVE); PROTEIN,URINE 100 mg/dL (NEGATIVE); UROBILINOGEN,URINE 0.2 EU/dL (<2.0)
[2023-12-04 13:57] LABS: BACTERIA,URINE MANY (NEGATIVE); BILIRUBIN,URINE SMALL (NEGATIVE); EPITHELIAL CELLS,URINE MODERATE (NONE-FEW); RBC,URINE 45-50 (0-2/HPF)
[2023-12-04] MEDS ORDERED: Cefdinir 300 MG Cap PO ONE (14:01)
== END 2023-12-04 14:28 | disposition home or self-care (01) ==
LOC: MW.ED 10:55
DX: T83.098A Other mechanical complication of other urinary catheter, initial encounter (principal); N39.0 Urinary tract infection, site not specified; N20.0 Calculus of kidney; I10 Essential (primary) hypertension; E66.9 Obesity, unspecified; Z68.33 Body mass index [BMI] 33.0-33.9, adult; Z75.8 Other problems related to medical facilities and other health care; Z79.899 Other long term (current) drug therapy; Y73.2 Prosthetic and other implants, materials and accessory gastroenterology and urology devices associated with adverse incidents
CPT/HCPCS: 51702; 81001; 82365; 99283; 99284